=== PATIENT | female | born 1980 | race Two or more races ===

== ENCOUNTER 2018-10-18 09:53 | Emergency (ER) | payer SELFPAY ==
[2018-10-18 09:57] VITALS: BP 125/81; PULSE 93; TEMP 98.2; BMI 22.6
--- NOTE | 2018-10-18 09:58 | PDOC ---
History of Present Illness - General Chief Complaint: Pain Stated Complaint: RT SHOULDER PAIN Time Seen by Provider: 10/18/18 09:58 - History of Present Illness Initial Comments: 38 year old female with no PMH presenting with right shoulder pain for the past week that she states was non-traumatic and improves with ibuprofen 400 and hot showers. Denies any chest pain, fevers, chills, nausea, vomiting, diarrhea, SOB , or other symptoms. She isn't as worried about the pain as she is about her having a "heart attack". She states that her father had a heart attack at the age of 68 and was complaining of shoulder pain at that time so she is worried that it could be the same. Denies any history of hypercholesterolemia, HTN, diabetes, or other issues. 10/18/18 11:23 Past History - Past Medical History Allergies/Adverse Reactions: Allergies Allergy/AdvReac Type Severity Reaction Status Date / Time No Known Allergies Allergy Verified 10/18/18 09:54 Home Medications: Ambulatory Orders NK [No Known Home Medication] 10/18/18 COPD: No Other medical history: pt denies - Suicide/Smoking/Psychosocial Hx Smoking History: Never smoked Have you smoked in the past 12 months: No Information on smoking cessation initiated: No Hx Alcohol Use: (occasional) Review of Systems - Review of Systems Constitutional: No: Chills, Diaphoresis, Fever HEENTM: No: Blurred Vision, Tearing Respiratory: No: Cough, Orthopnea, Shortness of Breath Cardiac (ROS): No: Chest Pain, Irregular Heart Rate, Lightheadedness, Palpitations ABD/GI: No: Diarrhea, Nausea, Vomiting : No: Burning, Dysuria, Discharge Musculoskeletal: Yes: Joint Pain. No: Back Pain, Joint Swelling, Muscle Weakness, Joint Stiffness Integumentary: No: Bruising, Erythema, Flushing Neurological: No: Headache, Numbness, Paresthesia Psychiatric: No: Anxiety, Depression Hematologic/Lymphatic: No: Anemia, Blood Clots, Easy Bleeding *Physical Exam - Vital Signs Last Vital Signs Temp Pulse Resp BP Pulse Ox 98.2 F 93 H 18 125/81 100 10/18/18 09:53 10/18/18 09:53 10/18/18 09:53 10/18/18 09:53 10/18/18 09:53 - Physical Exam General Appearance: Yes: Nourished, Appropriately Dressed. No: Apparent Distress HEENT: positive: EOMI, RAKESH, Normal ENT Inspection, Normal Voice Neck: positive: Trachea midline, Normal Thyroid, Supple. negative: Tender, Rigid Respiratory/Chest: positive: Lungs Clear, Normal Breath Sounds. negative: Chest Tender, Respiratory Distress, Accessory Muscle Use Cardiovascular: positive: Regular Rhythm, Regular Rate Gastrointestinal/Abdominal: positive: Normal Bowel Sounds, Flat, Soft. negative : Tender Lymphatic: negative: Adenopathy, Tenderness Musculoskeletal: negative: Normal Inspection (slight pain at the shoulder with active ROM above 90 degrees of abduction. Painful arch sign slightly positive but able to fully range withotu too much difficulty. ), Decreased Range of Motion Extremity: positive: Normal Capillary Refill, Normal Range of Motion, Tender ( slight ttp over anterio right deltoid). negative: Normal Inspection (per above) Integumentary: positive: Normal Color, Dry, Warm Neurologic: positive: Fully Oriented, Alert, Normal Mood/Affect, Normal Response , Motor Strength 5/5 Moderate Sedation - Procedure Monitoring Vital Signs: Procedure Monitoring Vital Signs Temperature 98.2 F 10/18/18 09:53 Pulse Rate 93 H 10/18/18 09:53 Respiratory Rate 18 10/18/18 09:53 Blood Pressure 125/81 10/18/18 09:53 O2 Sat by Pulse Oximetry (%) 100 10/18/18 09:53 Medical Decision Making - Medical Decision Making 38 year odl female with right shoulder pain for the past two weeks. She is most concerned that this is a cardiac pathology. Her shoulder pain is unconcerning because of her non acute WNL physical exam and her pain does not seem cardiac in presentation. Furthermore, she has no cardiac risk facors although she perseverates on her father who of an VT at the age of 68. Her EKG demonstrated rate 86, pr interval 152, qrs 76, [id number], normal axis, no ST or t wave changes. Hcg negative. Pain relieved with toradol 30 IM and she was pain free on discharge. 10/18/18 14:32 *DC/Admit/Observation/Transfer Diagnosis at time of Disposition: Shoulder pain Qualifiers: Chronicity: acute Laterality: right Qualified Code(s): M25.511 - Pain in right shoulder - Discharge Dispostion Disposition: HOME Condition at time of disposition: Improved Decision to Admit order: No - Referrals Referrals: [facility] [Provider Group] - Patient Instructions Printed Discharge Instructions: DI for Shoulder Pain Additional Instructions: Your EKG was fine so you are not having any type of heart problems right now. Please use ibuprofen and Tylenol for your pain. Ibuprofen 600 every 4-6 hours as needed or Tylenol 500. Please make an appointment with our clinic on this sheet. Please return to the ED if you have new or worsening symptoms. - Post Discharge Activity
--- NOTE | 2018-10-18 10:12 | PDOC ---
Attending Attestation - Resident Resident Name: XiomaraKimmyashwinmirna - ED Attending Attestation I have performed the following: I have examined & evaluated the patient, The case was reviewed & discussed with the resident, I agree w/resident's findings & plan, Exceptions are as noted - HPI HPI: 10/18/18 11:19 Pain in the right shoulder for approximately one week. Pain radiates up the right side of the neck. No acute injury or repetitive activities. However, pain is aggravated with arm motion and use of the right arm. Past history is negative. Patient is healthy female with no disabilities. She is concerned however about her heart, since her father had an MN in his late 60s. She has no left-sided chest pain, no other cardiac symptoms, and no risk factors other than a family history which is positive for coronary artery disease but only at a later age. - Physicial Exam PE: 10/18/18 11:23 On physical exam she is afebrile with normal vital signs. Heart and lung exams are normal. Examination of the right shoulder shows no deformity or point tenderness. There is full range of motion, however, with mild pain at the extremes of abduction. Pulses are full. No distal sensory or motor deficits. - Medical Decision Making 10/18/18 11:24 EKG is entirely normal. xray neg musc skel pain rest, anti-inflammatory, ortho referral
[2018-10-18] MEDS ORDERED: KETOROLAC TROMETHAMINE 30 MG/1 ML VIAL IM ONE (10:26)
[2018-10-18] MEDS ORDERED: KETOROLAC TROMETHAMINE 30 MG/1 ML VIAL ONE (10:34)
--- NOTE | 2018-10-19 15:10 | EKG ---
Test Reason : Blood Pressure : / mmHG Vent. Rate : 086 BPM Atrial Rate : 086 BPM P-R Int : 162 ms QRS Dur : 076 ms QT Int : 366 ms P-R-T Axes : 053 014 018 degrees QTc Int : 437 ms NORMAL SINUS RHYTHM NORMAL ECG NO PREVIOUS ECGS AVAILABLE Confirmed by Scottie Vela MD ([id number]) on 10/19/2018 3:10:00 PM Referred By: URI GILLIAM Confirmed By:Scottie Vela MD
== END 2018-10-18 11:00 | disposition home or self-care (01) ==
LOC: FER 09:53
PROC: 3E0233Z Introduction of Anti-inflammatory into Muscle, Percutaneous Approach (ICD-10-PCS; principal; 2018-10-18)
DX: M25.511 Pain in right shoulder (principal)
CPT/HCPCS: 84703; 93005; 99283-25